=== PATIENT | male | born 1970 | race Caucasian/White ===

== ENCOUNTER 2022-08-21 22:10 | Emergency (ER) | payer BC ==
[~2022-08-21] VITALS: Ht 177.8 cm; Wt 92.5 kg
[2022-08-21 22:19] VITALS: PULSE 57
[2022-08-21 22:35] VITALS: BP 138/86; TEMP 98.1; O2SAT 9
== END 2022-08-22 03:01 | disposition left against medical advice (07) ==
LOC: ER 22:47
DX: Z53.21 Procedure and treatment not carried out due to patient leaving prior to being seen by health care provider (principal)
CPT/HCPCS: 99281